=== PATIENT | male | born 1980 | race Caucasian/White ===

== ENCOUNTER 2016-08-18 08:52 | Emergency (ER) | payer OTHER ==
[~2016-08-18] VITALS: Ht 167.6 cm; Wt 72.6 kg
[2016-08-18 09:00] VITALS: BP 144/82
--- NOTE | 2016-08-18 09:15 | ED UPPER/LOWER EXTREMITY COMPL ---
History of Present Illness General Chief Complaint: Lower Extremity Problems Stated Complaint: L FOOT PAIN Source: patient Exam Limitations: no limitations Vital Signs & Intake/Output Vital Signs & Intake/Output Vital Signs Date Time Temp Pulse Resp B/P Pulse O2 O2 Flow FiO2 Ox Delivery Rate 08/18 0900 96.5 73 18 144/82 99 Room Air Allergies Coded Allergies: Penicillins (UNSURE A CHILD 08/18/16) Triage Note: 36 KNOWN INJURY OR TRAUMA. DENIES NOTING REDNESS BUT STATES ITS "A LITTLE SWOLLEN". AMBULATORY INTO TRIAGE, DECLINING OFFER OF W/C OR MEDICATIONS. DENIES SYMPTOMS IN FOOT STATING ITS RIGHT AROUND THE L ANKLE. Triage Nurses Notes Reviewed? yes Onset: Gradual Duration: week(s): (3) Timing: no prior history Severity: moderate Severity Numbers: 6 Pain/Injury Location: Left: Foot. Method of Injury: unknown Modifying Factors: Improves With: immobilization. Worsens With: movement. Associated Symptoms: swelling HPI: Patient is a 36-year-old male presenting to the emergency department with chief complaint of left foot pain has been going on for the past 3 weeks.The injury. He reports that he is on his feet often, but nothing extensive. Denies any new shoes. Has been taking intermittent Motrin with mild relief. He noted some swelling but no erythema. Denies numbness or tingling. Pain does not radiatE. Pain currently mild worse with ambulation. Denies any other injuries. No history of similar symptoms. (MARINE BARAHONA) Reconcile Medications Methylprednisolone. (Medrol) 4 MG TAB.DS.PK 1 DP PO AD FOOT PAIN/INFLAMMATION 6 on day 1 then reduce by one tablet daily until gone (GAIL CHAPARRO DO) Past History Travel History Traveled to [place] past 21 day No Medical History Any Pertinent Medical History? 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 No (MARINE BARAHONA) Review of Systems Review of Systems Constitutional: Reports: no symptoms. Comments Review of systems: See HPI, All other systems negative. Constitutional, no chills fever or weight loss HEENT: No visual changes no sore throat no congestion Cardiovascular: No chest pain ,palpitation Skin, no jaundice no rashes Respiratory: No dyspnea cough GI: No nausea no vomiting Muscle skeletal: no back pain, no neck pain, Neurologic: No numbness Psych: No stress anxiety or depression,. Heme/endocrine: No bruising no bleeding no polyuria or polydipsia Immunology: No splenectomy or history of AIDS (MARINE BARAHONA) Physical Exam Physical Exam General Appearance: well developed/nourished, no apparent distress, alert, awake , comfortable Comments: Well-developed well-nourished person in no acute distress HEENT: Pupils equally round and reactive to light and accommodation. Nose is atraumatic. Neck: NORMAL INSPECTION Back: Nontender Cardiovascular: Regular rate and rhythms no murmurs rubs or gallops, normal JVP Respiratory: Chest nontender. No respiratory distress.breath sounds clear to auscultation bilaterally Extremity: no calf tenderness to palpation, normal and equal pulses. CAP REFILL INTACT IN LEFT FOOT. TENDER TO PALPATION OVER THE INSTEP OF LEFT FOOT. MILD EDEMA OVER THE LATERAL ASPECT OF LEFT FOOT. FULL ROM OF LEFT FOOT, LEFT ANKLE. NO ERYTHEMA. Neuro: Alert oriented x3, motor sensory normal Skin: No appreciable rash on exposed skin, skin is warm and dry. Psych: Mood and affect is normal, memory and judgment is normal. (MARINE BARAHONA) Progress Differential Diagnosis: contusion, dislocation, fracture, gout, sprain, tendon injury Plan of Care: Orders Procedure Date/time Status XRY-ANKLE 3 OR MORE VIEWS L 08/18 902 Active Diagnostic Imaging: Viewed by Me: Radiology Read. Discussed w/RAD: Radiology Read. Radiology Impression: PATIENT: RENUKA VILLAVICENCIO PRESENT AGE: 36 PATIENT ACCOUNT NO: [id number] : 80 LOCATION: [facility] ORDERING PHYSICIAN: GAIL CHAPARRO DO SERVICE DATE: 08/18/16 EXAM TYPE: RAD - XRY-ANKLE 3 OR MORE VIEWS L EXAMINATION: XR ANKLE, LEFT CLINICAL INFORMATION: No known injury or trauma. Rule out fracture. Pain for 2 weeks. COMPARISON: None TECHNIQUE: AP, lateral, and mortise views of the left ankle. FINDINGS: There is no fracture or dislocation. The ankle mortise is maintained. Regional soft tissue is normal. IMPRESSION: No acute osseous abnormality. (MARINE BARAHONA) Departure Departure Time of Disposition: 930 Disposition: HOME OR SELF CARE Condition: Stable Clinical Impression Primary Impression: Foot sprain Qualifiers: Encounter type: initial encounter Laterality: left Qualified Code: S93.602A - Unspecified sprain of left foot, initial encounter Referrals: PATIENT HAS NO PRIMARY CARE DR (PCP/Family) JENNIFFER GUPTA,MARILYN Cristobal Additional Instructions: Follow-up with orthopedics if symptoms persist. Rest ice and elevate foot as much as possible. Take Medrol dosepak as prescribed to help with inflammation and pain. Return for worsening symptoms or concerns. There is a chance that the x-ray is not able to visualize a small fracture. If pain persists he may need MRI or further evaluation by the orthopedic. Wear Ayo wrap for support. Departure Forms: Customer Survey General Discharge Information Prescriptions: Current Visit Scripts Methylprednisolone. (Medrol) 1 DP PO AD #1 DP 6 on day 1 then reduce by one tablet daily until gone (MARINE BARAHONA) PA/LINE MAINTAINER SECTION Co-Sign Statement Statement: ED Attending supervision documentation- [] I saw and evaluated the patient. I have also reviewed all the pertinent lab results and diagnostic results. I agree with the findings and the plan of care as documented in the PA's/LINE MAINTAINER SECTION's documentation. [X] I have reviewed the ED Record and agree with the PA's/LINE MAINTAINER SECTION's documentation. [] Additions or exceptions (if any) to the PAs/LINE MAINTAINER SECTION's note and plan are summarized below: [] (GAIL CHAPARRO DO) Procedures Splinting Location: LEFT FOOT Manual Alignment Performed: No Pre-Made Type: Ayo WRAP Splint Applied By: splint applied by other (pa STUDENT) Pre-Proc Neuro Vasc Exam: normal Post-Proc Neuro Vasc Exam: normal Progress: Tolerated procedure well. (MARINE BARAHONA)
--- NOTE | 2016-08-18 09:29 | RADIOLOGY REPORT ---
EXAMINATION: XR ANKLE, LEFT CLINICAL INFORMATION: No known injury or trauma. Rule out fracture. Pain for 2 weeks. COMPARISON: None TECHNIQUE: AP, lateral, and mortise views of the left ankle. FINDINGS: There is no fracture or dislocation. The ankle mortise is maintained. Regional soft tissue is normal. IMPRESSION: No acute osseous abnormality.
[2016-08-18] MEDS ORDERED: MEDROL4 M2 PO (09:39)
== END 2016-08-18 09:51 ==
LOC: ERH 08:52
DX: S93.602A Unspecified sprain of left foot, initial encounter (principal); X58.XXXA Exposure to other specified factors, initial encounter
CPT/HCPCS: 73610-LT